=== PATIENT | female | born 1965 | race Caucasian/White ===

== ENCOUNTER 2016-12-04 08:21 | Emergency (ER) | payer OTHER ==
[~2016-12-04] VITALS: Ht 162.6 cm; Wt 63.0 kg
[2016-12-04 08:26] VITALS: BP 182/92
--- NOTE | 2016-12-04 08:33 | NUR ---
PATIENT TO BED 2 AT THIS TIME,
--- NOTE | 2016-12-04 08:35 | NUR ---
PATIENT PRESENTS TO ED WITH MIDSTERNAL HEAVYNESS TYPE DISCOMFORT DESCRIBED BY PT--MILD AT THIS TIME STATED BY PT 12/21 . PT STATES FEELS SOB WITH EXCESSIVE ACTIVITIES . DENIES N/V/D; SKIN IS PINK/WARM/DRY; AAOX4 WITH EVEN AND STEADY GAIT; LUNGS CLEAR BL; HR EVEN AND REGULAR; PT DENIES ANY FEVER,OR COUGH AT THIS TIME; PATIENT STATES PAIN OF 3/10 AT THIS TIME; VSS; PATIENT POSITIONED FOR COMFORT; HOB ELEVATED; BEDRAILS UP X2; BED DOWN. ER MD MADE AWARE OF PT STATUS. NO SWELLING TO EXTREMITIES, GOOD PULSES TO ALL EXTREMITIES < 3 SEC CAP REFILL
--- NOTE | 2016-12-04 08:45 | NUR ---
X-Ray at bedside.
--- NOTE | 2016-12-04 09:11 | NUR ---
Patient being evaluated by DR HUSTON at bedside.
--- NOTE | 2016-12-04 10:01 | NUR ---
PT LYING ON BED COMFORTABLY. NO ACUTE DISTRESS NOTED AT THIS TIME.WILL CONTINUE TO MONITOR PT.
--- NOTE | 2016-12-04 10:53 | NUR ---
PT IS SLEEPING.ALL MONITORS IN PLACED. NO ACUTE DISTRESS NOTED AT THIS TIME.WILL CONTINUE TO MONITOR PT.
[2016-12-04] MEDS ORDERED: POTASSIUM CHLORIDE 10 MEQ TABER PO ONE (11:35)
[2016-12-04 12:12] VITALS: BP 158/82
[2016-12-12] MEDS ORDERED: TENORMIN50 M1 PO (16:15)
[2016-12-14] MEDS ORDERED: LOPRESSOR25 MG PO (23:15)
[2016-12-14] MEDS ORDERED: K-DUR10 MEQ PO (23:17)
[2016-12-14] MEDS ORDERED: LASIX40 MG PO (23:19)
[2016-12-14] MEDS ORDERED: VIBRAMYCIN100 MG PO (23:20)
== END 2016-12-04 12:17 | disposition home or self-care (01) ==
LOC: MED 08:22
DX: J18.1 Lobar pneumonia, unspecified organism (principal); I10 Essential (primary) hypertension
CPT/HCPCS: 36415; 71010; 80053; 81001; 81025; 83690; 83880; 84484; 85025; 85610; 85730; 93005; 99285; Q0092